=== PATIENT | female | born 1985 | race Caucasian/White ===

== ENCOUNTER 2017-04-17 20:54 | Emergency (ER) | payer MEDICARE ==
[~2017-04-17] VITALS: Ht 162.6 cm; Wt 68.0 kg
[~2017-04-17 20:54] MED LIST: CALC-308 PO; CARV25TA PO; CLON0.2T PO; HYDR-757 PO; LISI-552 PO; MUPI15CR11 TP; ONDA4TAB8 PO
[2017-04-17] MEDS ORDERED: SEVE800T7 (21:14)
[2017-04-17] MEDS ORDERED: DILT180C48 (21:14)
[2017-04-17] MEDS ORDERED: OMEP20CA12 (21:14)
[2017-04-17] MEDS ORDERED: HYDR-3924 (21:14)
[2017-04-17] MEDS ORDERED: OXYC-471 (21:14)
[2017-04-17] MEDS ORDERED: CLON1TAB3 (21:14)
[2017-04-17] MEDS ORDERED: CETI10TA17 (21:14)
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
--- NOTE | 2017-04-17 22:06 | Diagnostic Imaging Report ---
EXAM: THORACIC SPINE, 2 VIEWS ONLY INDICATION: Back pain. COMPARISON: Lumbar spine radiographs 11/17/2015. FINDINGS: Marked anterior wedging of the T10 vertebral body. This was not well characterized on the prior lumbar spine radiographs. Vertebral body heights are otherwise preserved. There are hvkr-uz-onkjrrnv diffuse degenerative endplate changes. No other findings suspicious for acute fracture. Atherosclerotic calcifications are greater than expected for age. Surgical clips in the thoracic inlet and base of the neck. Cardiomegaly. IMPRESSION: Marked anterior wedging of the T10 vertebral body. This is age-indeterminate and was not well characterized on the prior lumbar spine radiographs. If there is suspicion of an acute or subacute fracture, recommend further evaluation with MRI. Dictated by: Dictated on workstation # [id number]
--- NOTE | 2017-04-17 22:09 | Diagnostic Imaging Report ---
EXAM: LUMBAR SPINE - 2-3 VIEWS INDICATION: Back pain. COMPARISON: Lumbar spine radiographs 11/17/2015. FINDINGS: Marked anterior wedging of the T10 vertebral body is age-indeterminate. This was not well characterized on the prior lumbar spine radiographs. Vertebral body heights are otherwise preserved. Normal alignment. No acute fractures. Atherosclerotic calcifications are greater than expected for age. IMPRESSION: Age-indeterminate anterior wedging of the T10 vertebral body. This may have been present on the prior lumbar spine radiographs was not well characterized. If there is a concern for subacute or acute fracture, recommend MRI. Dictated by: Dictated on workstation # [id number]
[2017-04-17] MEDS ORDERED: TIZA2CAP PO (22:28)
[2017-04-17] MEDS ORDERED: KETOROLAC 60 MG/2 ML VIAL IM STA (22:30)
[2017-04-17 22:58] VITALS: BP 119/81
== END 2017-04-17 22:56 | disposition home or self-care (01) ==
LOC: EDUNIT# 20:54 → ER 20:57
DX: M54.9 Dorsalgia, unspecified (principal); I12.0 Hypertensive chronic kidney disease with stage 5 chronic kidney disease or end stage renal disease; N18.6 End stage renal disease; Z99.2 Dependence on renal dialysis; Z87.81 Personal history of (healed) traumatic fracture; Z90.89 Acquired absence of other organs; X50.0XXA Overexertion from strenuous movement or load, initial encounter
CPT/HCPCS: 72070; 72100; 99284

== ENCOUNTER 2017-06-22 14:41 | Emergency (ER) | payer MEDICARE ==
[~2017-06-22] VITALS: Ht 162.6 cm; Wt 68.0 kg
[~2017-06-22 14:41] MED LIST changes: +CETI10TA17; +CLON1TAB3; +DILT180C48; +HYDR-3924; +OMEP20CA12; +OXYC-471; +SEVE800T7; +TIZA2CAP PO
--- NOTE | 2017-06-22 15:46 | ED Fall/Injury ---
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 SHE IS C/O TAILBONE PAIN UP TO MID BACK PAIN. Source: patient History of Present Illness Date Seen by Provider: Jun 22, 2017 Time Seen by Provider: 14:55 Initial Comments PT ARRIVES VIA POV--AMBULATES INTO ER ON HER OWN WITHOUT ANY DIFFICULTY WHATSOEVER C/O "EXTREME TAILBONE PAIN TO MY HIPS AND UP TO THE MIDDLE OF MY BACK" PT STATES SHE SLIPPED ON THE ICE AND LANDED ON HER BUTTOCKS ONTO [address] DRIVEWAY LAST WEEK--06/12/17 PT STATES "PAIN IS SO SEVERE AND IT'S DRIVING ME NUTS AND I CAN'T SLEEP AND I'M USING MY WALKER TO GET ANYWHERE" PT STATES SHE IS ONLY ABLE TO SLEEP IN CHAIR AT DIALYSIS NO NEW PARESTHESIAS OR MOTOR DEFICITS--HAS PERIPHERAL NEUROPATHY PT DENIES ANY CHANGES IN BOWEL OR BLADDER FUNCTION. 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 ALSO HAS PARATHYROID DISEASE PCP: NONE--"JUST MOVED HERE 1 MONTH AGO FROM [place]" STATES SHE IS "BOUNCING BACK BETWEEN STAYING WITH A FRIEND HERE IN [place] AND SISTER IN [place]" GOES TO DIALYSIS IN [place] Allergies and Home Medications Allergies Coded Allergies: Penicillins (Verified Allergy, Unknown, 11/17/15) iron (Verified Allergy, Unknown, 11/17/15) Home Medications Calcium Carbonate 500 Mg Tab.chew, Unknown Dose PO, (Reported) Carvedilol 25 Mg Tablet, 25 MG PO BID, (Reported) Cetirizine HCl 10 Mg Tablet, (Reported) Clonazepam 1 Mg Tablet, (Reported) Diltiazem HCl 180 Mg Cap.er.deg, (Reported) Hydralazine HCl 50 Mg Tablet, (Reported) Lisinopril 20 Mg Tablet, 20 MG PO DAILY, (Reported) Methylprednisolone 4 Mg Tab.ds.pk, 4 MG PO UD, #1 Prescribed by: COREY SINGH on 06/22/17 1644 Omeprazole 20 Mg Capsule., (Reported) Oxycodone HCl/Acetaminophen 1 Each Tablet, (Reported) Sevelamer Carbonate 800 Mg Tablet, (Reported) Tizanidine HCl 2 Mg Capsule, 2 MG PO Q8H PRN for SPASMS, #15 Ref 0 Prescribed by: RALPH LONG on 04/17/178 Tizanidine HCl 4 Mg Tablet, 4 MG PO TID, #14 Prescribed by: COREY SINGH on 06/22/17 1644 Constitutional: no symptoms reported Respiratory: no symptoms reported Cardiovascular: no symptoms reported Gastrointestinal: no symptoms reported Genitourinary: see HPI : No (LMP 6 MONTHS AGO--PT STATES SHE DOES NOT HAVE PERIODS DUE TO ANEMIA--ONLY GETS A PERIOD WHEN SHE HAS A BLOOD TRANSFUSION. LAST TRANSFUSION 1 MONTH AGO BUT NO PERIOD. STATES NO INTERCOURSE >1 YEAR AGO ) Musculoskeletal: see HPI, back pain Skin: no symptoms reported Psychiatric/Neurological: See HPI, Pre-Existing Deficit Past Yseowzq-Subpdx-Jbeqlc Hx Patient Social History Alcohol Use: Denies Use Recreational Drug Use: No Smoking Status: Current Everyday Smoker (1 PPD) Type Used: Cigarettes 2nd Hand Smoke Exposure: Yes Recent Foreign Travel: No Contact w/Someone Who Travel: No Recent Infectious Disease Expo: No Recent Hopitalizations: No Immunizations Up To Date Tetanus Booster (TDap): Unknown PED Vaccines UTD: Yes Seasonal Allergies Seasonal Allergies: No Surgeries History of Surgeries: Yes (LEFT ARM DIALYSIS FISTULA; LEFT PATELLA TENDON REPAIR; RIGHT QUADRICEPS TENDON REPAIR; RIGHT RENAL BIOPSY) Surgeries: Dialysis, Orthopedic, Parathyroidectomy Respiratory History of Respiratory Disorde: No Cardiovascular History of Cardiac Disorders: Yes Cardiac Disorders: Hypertension Neurological History of Neurological Disord: Yes Neurological Disorders: Neuropathy Reproductive System Female Reproductive Disorders: Menstrual Problems Genitourinary History of Genitourinary Disor: Yes (ESRD-FELT TO BE FROM STREP GLOMERULONEPHRITIS AT AGE 15, RENAL FAILURE DX AGE 19, ON DIALYSIS SINCE AGE 23) Genitourinary Disorders: Renal Failure, Dialysis Gastrointestinal History of Gastrointestinal Di: Yes Gastrointestinal Disorders: Gastroesophageal Reflux Musculoskeletal History of Musculoskeletal Dis: Yes (T11 COMPRESSION FRACTURE; CHRONIC GENERALIZED PAIN) Musculoskeletal Disorders: Osteoporosis, Chronic Back Pain, Fractures Endocrine History of Endocrine Disorders: Yes Endocrine Disorders: Parathyroid Disease HEENT History of HEENT Disorders: No Cancer History of Cancer: No Psychosocial History of Psychiatric Problem: No Integumentary History of Skin or Integumenta: No Blood Transfusions History of Blood Disorders: Yes (ANEMIA) Hx of Blood Transfusion YES-MULTIPLE Adverse Reaction to a Blood Tr: No Physical Exam Vital Signs Vital Sign - Last 12Hours 06/22/17 14:56 Temp 98.2 Pulse 86 Resp 18 B/P (MAP) 124/84 (97) Pulse Ox 96 O2 Delivery Room Air Capillary Refill : Less Than 3 Seconds General Appearance: WD/WN, no apparent distress, other (PT AMBULATES INTO ER WITHOUT ANY DIFFICULTY, WITHOUT A WALKER OR ANY ASSISTANCE. PT SITTING - STYLE ON ER CART, TEXTING ON PHONE. DOES NOT APPEAR TO BE IN ANY DISCOMFORT. PT WALKS UPRIGHT AND MOVES WITHOUT ANY DIFFICULTY. ) HEENT: PERRL/EOMI Neck: normal inspection Cardiovascular: regular rate, rhythm, no murmur Respiratory: normal breath sounds, no respiratory distress, no accessory muscle use Gastrointestinal: normal bowel sounds, non tender, soft Back: other (MILD TENDERNESS FROM MID THORACIC AREA TO LUMBAR AREA. TENDERNESS OVER L>R SI JOINT AREAS. DTR'S INTACT BILATERALLY. ) Extremities: normal range of motion, non-tender, normal inspection, no pedal edema, no calf tenderness, normal capillary refill Neurologic/Psychiatric: site administrator II-XII nml as tested, no motor/sensory deficits ( GROSSLY INTACT. HISTORY OF PERIPHERAL NEUROPATHY IN FEET. ), alert, normal mood/ affect, oriented x 3 Skin: warm/dry, other (SALLOW/PALE; NO EXTERNAL EVIDENCE OF TRAUMA TO BACK ) Josefa Coma Score Best Eye Response: (4) Open Spontaneously Best Verbal Response: (5) Oriented Best Motor Response: (6) Obeys Commands Josefa Total: 15 Progress/Results/Core Measures Results/Orders My Orders Orders - COREY SINGH DO Ct Thoracic/Lumbar Spine Wo (06/22/17 15:09) Ct Pelvis Wo (06/22/17 15:10) Vital Signs/I&O Vital Sign - Last 12Hours 06/22/17 14:56 Temp 98.2 Pulse 86 Resp 18 B/P (MAP) 124/84 (97) Pulse Ox 96 O2 Delivery Room Air Blood Pressure Mean: 97 Progress Note : Progress Note UNEVENTFUL ER STAY Diagnostic Imaging Comments CT THORACIC AND LUMBAR SPINE--CHRONIC COMPRESSION T11 VERTEBRA, AND CHRONIC DEGENERATIVE, SCLEROTIC, OSTEOPOROTIC CHANGES . NO ACUTE PROCESS. ALL UNCHANGED FROM PRIOR CT ON 04/17/17--PER RADIOLOGIST REPORT @ 1632 Reviewed: Reviewed by Me Departure Impression Impression: Primary Impression: Low back strain Disposition: 01 HOME, SELF-CARE Condition: Stable Departure-Patient Inst. Referrals: NO,LOCAL PHYSICIAN (PCP/Family) Primary Care Physician Patient Instructions: MANAGING YOUR CHRONIC PAIN, Low Back Pain (DC), Lumbar Muscle Strain (DC) Add. Discharge Instructions: CONTINUE YOUR REGULAR MEDICATIONS PRESCRIBED FOLLOW UP WITH LOCAL DR OF CHOICE NEXT WEEK FOR FURTHER CARE All discharge instructions reviewed with patient and/or family. Voiced understanding. Scripts Tizanidine HCl (Zanaflex) 4 Mg Tablet 4 MG PO TID, #14 TAB Prov: COREY SINGH DO 06/22/17 Methylprednisolone (Medrol) 4 Mg Tab.ds.pk 4 MG PO UD, #1 PKG Prov: COREY SINGH DO 06/22/17 COREY SINGH DO Jun 22, 2017 15:46
--- NOTE | 2017-06-22 15:58 | Diagnostic Imaging Report ---
INDICATION: Fall with back and tailbone pain. Axial imaging through the thoracic and lumbar spine was performed without contrast. Sagittal and coronal reformations were also performed. Comparison is made with radiographs of the thoracic and lumbar spine performed on 04/17/2017. FINDINGS: Marked anterior compression deformity involving approximately T11 vertebral body is similar to the plain films from March 2017. No significant retropulsion is identified. Remaining thoracic and lumbar vertebrae demonstrate normal stature. There is diffuse osteosclerosis of the visualized thoracic and lumbar spine and ribs. There do appear to be small bilateral pleural effusions present. Soft tissue windows demonstrate bilateral renal atrophy. There are vascular calcifications present. The heart appears to be enlarged. IMPRESSION: Diffuse osteosclerosis, perhaps on the basis of renal osteodystrophy. There is a compression fracture deformity of T11 vertebral body, similar to the plain films from 04/17/2017. No new fracture is identified. Dictated by: Dictated on workstation # [id number]
--- NOTE | 2017-06-22 16:01 | Diagnostic Imaging Report ---
PROCEDURE: CT pelvis without contrast. TECHNIQUE: Multiple contiguous axial images were obtained through the pelvis without the use of intravenous contrast. Sagittal and coronal reformations were performed. INDICATION: Fall, bilateral pain in the iliac crest region. COMPARISON: None. FINDINGS: The bone is heterogeneously dense throughout the pelvis, with prominent trabeculations in the proximal femurs. The imaged portions of the lower lumbar spine demonstrate dense bone along the endplates. A Schmorl's node is seen at the superior endplate of the L4 vertebral body. No acute fracture is seen. Alignment appears normal. The femoral heads are well seated in the acetabula bilaterally. The bilateral sacroiliac joints and pubic symphysis are patent. There is transitional anatomy at the lumbosacral junction, with partial sacralization of the L5 vertebral body on the left. No free fluid is seen in the pelvis. No fluid collections or masses are identified. IMPRESSION: 1. No acute fracture or dislocation is seen in the pelvis. 2. Heterogeneously dense bone throughout the pelvis with endplate sclerosis partially seen in the lower lumbar spine suggestive of hyperparathyroidism or osteopetrosis. 3. Transitional anatomy at the lumbosacral junction with hemisacralization of L5. This can be a source of chronic pain in some individuals. Dictated by: Dictated on workstation # [id number]
[2017-06-22] MEDS ORDERED: TIZA4TAB11 PO (16:44)
[2017-06-22] MEDS ORDERED: METH4TAB PO (16:44)
[2017-06-22 17:03] VITALS: BP 124/84
== END 2017-06-22 17:03 | disposition home or self-care (01) ==
LOC: EDUNIT# 14:41 → ER 14:43
DX: S39.012A Strain of muscle, fascia and tendon of lower back, initial encounter (principal); M81.0 Age-related osteoporosis without current pathological fracture; K21.9 Gastro-esophageal reflux disease without esophagitis; G62.9 Polyneuropathy, unspecified; I10 Essential (primary) hypertension; F17.210 Nicotine dependence, cigarettes, uncomplicated; Z87.81 Personal history of (healed) traumatic fracture; Z99.2 Dependence on renal dialysis; Z90.89 Acquired absence of other organs; W00.0XXA Fall on same level due to ice and snow, initial encounter
CPT/HCPCS: 72128; 72131; 72192; 99281

== ENCOUNTER 2017-07-22 18:52 | Emergency (ER) | payer MEDICARE ==
[~2017-07-22] VITALS: Ht 162.6 cm; Wt 68.0 kg
[~2017-07-22 18:52] MED LIST changes: +METH4TAB PO; +TIZA4TAB11 PO
[2017-07-22] MEDS ORDERED: LIDOCAINE 2% VISCOUS 15 ML UDC PO ONE (20:15)
--- NOTE | 2017-07-22 20:22 | ED EENT ---
History of Present Illness General Chief Complaint: Dental Problems/Pain Stated Complaint: TOOTH BROKE/DENTAL PAIN History of Present Illness Date Seen by Provider: Jul 22, 2017 Time Seen by Provider: 20:17 Initial Comments Patient presents to the ER with complaints of left upper dental pain. Patient reports that 2 days ago she was eating and bit down on something hard and it broke off a piece of her tooth. Patient reports not having a dentist but is trying to get into somewhere that takes Medicaid. Patient is from [facility] and states that she is planning on getting into [facility] [place]. Timing/Duration: abrupt Severity: mild Location: mouth, dental Prearrival Treatment: over the counter meds Modifying Factors: Improves With Other (topical benzocaine) Associated Symptoms: denies symptoms Allergies and Home Medications Allergies Coded Allergies: Penicillins (Verified Allergy, Unknown, 11/17/15) iron (Verified Allergy, Unknown, 11/17/15) Home Medications Calcium Carbonate 500 Mg Tab.chew, Unknown Dose PO, (Reported) Carvedilol 25 Mg Tablet, 25 MG PO BID, (Reported) Cephalexin 500 Mg Capsule, 500 MG PO TID for 7 Days, #14 Prescribed by: KIM CRUZ on 07/22/172032 Cetirizine HCl 10 Mg Tablet, (Reported) Clonazepam 1 Mg Tablet, (Reported) Clonidine HCl 0.2 Mg Tablet, 0.2 MG PO BID PRN for BLOOD PRESSURE, (Reported) Diltiazem HCl 180 Mg Cap.er.deg, (Reported) Hydralazine HCl 50 Mg Tablet, (Reported) Hydrocodone/Acetaminophen 1 Each Tablet, 1 EACH PO Q6H, #10 Only fill prescription if antibiotic is also filled. Prescribed by: KIM CRUZ on 07/22/172032 Lisinopril 20 Mg Tablet, 20 MG PO DAILY, (Reported) Omeprazole 20 Mg Capsule., (Reported) Sevelamer Carbonate 800 Mg Tablet, (Reported) Review of Systems Constitutional: no symptoms reported, see HPI Eyes: No Symptoms Reported, See HPI Ears: No Symptoms Reported, See HPI Nose: no symptoms reported, see HPI Mouth: see HPI, other (broken tooth) Throat: no symptoms reported, see HPI Respiratory: no symptoms reported, see HPI Cardiovascular: no symptoms reported, see HPI Gastrointestinal: other (reports that she has end-stage renal failure and goes to dialysis.) : No Musculoskeletal: no symptoms reported, see HPI Skin: no symptoms reported Neurological: No Symptoms Reported, See HPI Hematologic/Lymphatic: No Symptoms Reported, See HPI Immunological/Allergic: no symptoms reported, see HPI Past Ydnrexf-Xbcxso-Sivrhr Hx Patient Social History Type Used: Cigarettes 2nd Hand Smoke Exposure: Yes Recent Foreign Travel: No Contact w/Someone Who Travel: No Recent Hopitalizations: No Immunizations Up To Date Tetanus Booster (TDap): Unknown PED Vaccines UTD: Yes Seasonal Allergies Seasonal Allergies: No Surgeries History of Surgeries: Yes Surgeries: Dialysis, Orthopedic, Parathyroidectomy Respiratory History of Respiratory Disorde: No Cardiovascular History of Cardiac Disorders: Yes Cardiac Disorders: Hypertension Neurological History of Neurological Disord: Yes Neurological Disorders: Neuropathy Reproductive System Female Reproductive Disorders: Menstrual Problems Genitourinary History of Genitourinary Disor: Yes Genitourinary Disorders: Renal Failure, Dialysis Gastrointestinal History of Gastrointestinal Di: Yes Gastrointestinal Disorders: Gastroesophageal Reflux Musculoskeletal History of Musculoskeletal Dis: Yes (T11 COMPRESSION FRACTURE; CHRONIC GENERALIZED PAIN) Musculoskeletal Disorders: Osteoporosis, Chronic Back Pain, Fractures Endocrine History of Endocrine Disorders: Yes Endocrine Disorders: Parathyroid Disease HEENT History of HEENT Disorders: No Cancer History of Cancer: No Psychosocial History of Psychiatric Problem: No Integumentary History of Skin or Integumenta: No Blood Transfusions History of Blood Disorders: Yes (ANEMIA) Adverse Reaction to a Blood Tr: No Physical Exam Vital Signs Vital Signs - First Documented 07/22/17 20:08 Temp 98.3 Pulse 77 Resp 18 B/P (MAP) 156/101 (119) O2 Delivery Room Air General Appearance: WD/WN, no apparent distress Eyes: bilateral eye normal inspection, bilateral eye PERRL, bilateral eye EOMI Mouth/Throat: dental tenderness, other (fractured tooth. No surrounding tenderness or inflammation that indicates a drainable abscess.) Neck: non-tender, full range of motion Cardiovascular: normal peripheral pulses, regular rate, rhythm Respiratory: chest non-tender, lungs clear, normal breath sounds Gastrointestinal: normal bowel sounds, non tender Neurologic/Psychiatric: alert, normal mood/affect, oriented x 3 Skin: normal color, warm/dry Progress/Results/Core Measures Results/Orders My Orders Orders - KIM CRUZ APRN Lidocaine 2% Viscous 15 Ml (Xylocaine Vi (07/22/17 20:15) Medications Given in ED Current Medications Medications Dose Ordered Sig/Sujey Route Start Time Stop Time Status Last Admin Dose Admin Lidocaine HCl 5 ml ONCE ONCE PO 07/22/17 20:15 07/22/17 20:16 DC 07/22/17 20:34 5 ML Vital Signs/I&O Vital Sign - Last 12Hours 07/22/17 20:08 Temp 98.3 Pulse 77 Resp 18 B/P (MAP) 156/101 (119) O2 Delivery Room Air Departure Communication (Admissions) Progress Notes [facility] pharmacy in [place] called me at this time to report that patient has had opiates filled at 4 different pharmacies written by 7 different prescribers over the past 6 months. With this information I decided to cancel the hydrocodone prescription due to concerns of inappropriate use of opiates. Impression Impression: Primary Impression: Fractured tooth Disposition: HOME, SELF-CARE Condition: Improved Departure-Patient Inst. Decision time for Depature: 20:23 Referrals: NO,LOCAL PHYSICIAN (PCP/Family) Primary Care Physician Patient Instructions: Fractured Tooth (DC), Dental Pain (DC) Add. Discharge Instructions: Make an appointment to follow-up with dentist within the week. If you do not have a dentist were insurance to me call the [facility] dental office for appointment. They're location that [address] [place] [address]. Take medications as directed. All discharge instructions reviewed with patient and/or family. Voiced understanding. Scripts Cephalexin (Keflex) 500 Mg Capsule 500 MG PO TID for 7 Days, #14 CAP Prov: KIM CRUZ INFORMATICS PHYSICIAN 07/22/17 Hydrocodone/Acetaminophen (Mora 5-325 Tablet) 1 Each Tablet 1 EACH PO Q6H for Pain, #10 TAB Only fill prescription if antibiotic is also filled. Prov: KIM CRUZ APRN 07/22/17 Images Mouth/Nose 1 - Fracture Tooth KIM CRUZ APRN Jul 22, 2017 20:22
[2017-07-22] MEDS ORDERED: CLON0.2T PO (20:26)
[2017-07-22] MEDS ORDERED: HYDR-757 PO (20:33)
[2017-07-22] MEDS ORDERED: CEPH-507 PO (20:33)
[2017-07-22 20:40] VITALS: BP 156/101
== END 2017-07-22 20:43 | disposition home or self-care (01) ==
LOC: EDUNIT# 18:52 → ER 18:53
DX: S02.5XXA Fracture of tooth (traumatic), initial encounter for closed fracture (principal); I12.0 Hypertensive chronic kidney disease with stage 5 chronic kidney disease or end stage renal disease; N18.6 End stage renal disease; K21.9 Gastro-esophageal reflux disease without esophagitis; M81.0 Age-related osteoporosis without current pathological fracture; Z99.2 Dependence on renal dialysis; Z88.0 Allergy status to penicillin; Z88.8 Allergy status to other drugs, medicaments and biological substances; Z77.22 Contact with and (suspected) exposure to environmental tobacco smoke (acute) (chronic); Z90.89 Acquired absence of other organs; X58.XXXA Exposure to other specified factors, initial encounter
CPT/HCPCS: 99283

== ENCOUNTER 2017-08-20 16:37 | Emergency (ER) | payer MEDICARE ==
[~2017-08-20] VITALS: Ht 162.6 cm; Wt 69.9 kg
[~2017-08-20 16:37] MED LIST changes: +CEPH-507 PO
[2017-08-20] MEDS ORDERED: LIDOCAINE 2% VISCOUS 15 ML UDC PO ONE (18:30)
[2017-08-20] MEDS ORDERED: CLIN300C11 PO (18:40)
[2017-08-20] MEDS ORDERED: HYDR-3812 PO (18:40)
--- NOTE | 2017-08-20 18:42 | ED EENT ---
History of Present Illness General Chief Complaint: Dental Problems/Pain Stated Complaint: DENTAL PAIN Nursing Triage Note: PATIENT STATES THAT SHE STARTED HAVING PAIN FROM A BROKEN TOOTH 4-5 WEEKS AGO. TODAY IT HAS WORSENED TO THE POINT THAT SHE CANT EAT AND IT IS GIVING HER HEADACHES. Source: patient Exam Limitations: no limitations History of Present Illness Date Seen by Provider: Aug 20, 2017 Time Seen by Provider: 18:13 Initial Comments This 32-year-old woman presents to the emergency room with complaints of dental pain that started 4-5 weeks ago. She has a fractured left upper molar. She had originally scheduled to see her dentist, Dr. Gonzalez, but he was out on paternity leave. The pain is intense throbbing especially when exposed to varying temperatures or with drinking. She had a questionable fever a few days ago. She has used topical anesthetic as previously prescribed and states this gave some relief. She is limited on her treatment options due to end-stage renal failure on dialysis. Allergies and Home Medications Allergies Coded Allergies: Penicillins (Verified Allergy, Unknown, 11/17/15) iron (Verified Allergy, Unknown, 11/17/15) Home Medications Carvedilol 25 Mg Tablet, 25 MG PO BID, (Reported) Cephalexin 500 Mg Capsule, 500 MG PO TID Prescribed by: KIM CRUZ on 07/22/172032 Clindamycin HCl 300 Mg Capsule, 300 MG PO QID Prescribed by: LATOSHA DOYLE on 08/20/171839 Clonidine HCl 0.2 Mg Tablet, 0.2 MG PO BID PRN for BLOOD PRESSURE, (Reported) Hydrocodone/Acetaminophen 1 Each Tablet, 1 EACH PO Q6H Only fill prescription if antibiotic is also filled. Prescribed by: KIM CRUZ on 07/22/172032 Hydrocodone/Acetaminophen 1 Each Tablet, 1 EACH PO Q6H PRN for PAIN-MODERATE TO SEVERE Prescribed by: LATOSHA DOYLE on 08/20/171839 Lisinopril 20 Mg Tablet, 20 MG PO DAILY, (Reported) Patient Home Medication List Home Medication List Reviewed: Yes Review of Systems Constitutional: no symptoms reported Eyes: No Symptoms Reported Ears: No Symptoms Reported Nose: no symptoms reported Mouth: see HPI Throat: no symptoms reported Respiratory: no symptoms reported Cardiovascular: no symptoms reported Gastrointestinal: no symptoms reported : No Musculoskeletal: no symptoms reported Skin: no symptoms reported Neurological: No Symptoms Reported Past Wqdhrwe-Azvktf-Pqhwib Hx Patient Social History Alcohol Use: Denies Use Recreational Drug Use: No Smoking Status: Current Everyday Smoker Type Used: Cigarettes 2nd Hand Smoke Exposure: Yes Recent Foreign Travel: No Contact w/Someone Who Travel: No Recent Infectious Disease Expo: No Recent Hopitalizations: No Physical Abuse: No Sexual Abuse: No Immunizations Up To Date Tetanus Booster (TDap): More than 5yrs PED Vaccines UTD: Yes Date of Pneumonia Vaccine: Apr 30, 2017 Date of Influenza Vaccine: Apr 30, 2017 Seasonal Allergies Seasonal Allergies: No Surgeries History of Surgeries: Yes Surgeries: Abdominal (endoscopy with esophageal dilatation), Dialysis (fistula in the left arm), Orthopedic (patellar tendon surgery), Parathyroidectomy Respiratory History of Respiratory Disorde: No Cardiovascular History of Cardiac Disorders: Yes Cardiac Disorders: Hypertension Neurological History of Neurological Disord: Yes Neurological Disorders: Neuropathy Reproductive System Female Reproductive Disorders: Menstrual Problems Genitourinary History of Genitourinary Disor: Yes 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), Dialysis Gastrointestinal History of Gastrointestinal Di: Yes Gastrointestinal Disorders: Gastroesophageal Reflux Musculoskeletal History of Musculoskeletal Dis: Yes (T11 COMPRESSION FRACTURE; CHRONIC GENERALIZED PAIN) Musculoskeletal Disorders: Osteoporosis, Chronic Back Pain, Fractures Endocrine History of Endocrine Disorders: Yes Endocrine Disorders: Parathyroid Disease HEENT History of HEENT Disorders: No Cancer History of Cancer: No Psychosocial History of Psychiatric Problem: No Suicide Risk Score: 0 Integumentary History of Skin or Integumenta: No Blood Transfusions History of Blood Disorders: Yes (ANEMIA) Adverse Reaction to a Blood Tr: No Physical Exam Vital Signs Vital Signs - First Documented 08/20/17 17:20 Temp 97.6 Pulse 81 Resp 20 B/P (MAP) 142/99 (113) Pulse Ox 100 O2 Delivery Room Air General Appearance: WD/WN, no apparent distress Nose: normal inspection Mouth/Throat: pharynx normal, dental tenderness, other (fractured left upper molar. No overt abscess formation or gingivitis.) Neck: normal inspection Cardiovascular: regular rate, rhythm, no edema, no murmur Respiratory: lungs clear, normal breath sounds, no respiratory distress, no accessory muscle use Neurologic/Psychiatric: superintendent pier II-XII nml as tested, no motor/sensory deficits, alert, normal mood/affect, oriented x 3 Skin: normal color, warm/dry Progress/Results/Core Measures Results/Orders My Orders Orders - LATOSHA SUTTON MD Lidocaine 2% Viscous 15 Ml (Xylocaine Vi (08/20/17 18:30) Vital Signs/I&O Vital Sign - Last 12Hours 08/20/17 08/20/17 17:20 18:57 Temp 97.6 97.6 Pulse 81 81 Resp 20 20 B/P (MAP) 142/99 (113) 142/99 (113) Pulse Ox 100 100 O2 Delivery Room Air Room Air Blood Pressure Mean: 113 Progress Note : Progress Note Patient was supplied with a prescription for clindamycin and a small quantity of hydrocodone. Anesthetic gauze pads were prepared. Strict precautions regarding use of gauze pads were discussed. Departure Impression Impression: Primary Impression: Fractured tooth Qualified Codes: S02.5XXA - Fracture of tooth (traumatic), initial encounter for closed fracture Additional Impression: Pain, dental Disposition: HOME, SELF-CARE Condition: Improved Departure-Patient Inst. Decision time for Depature: 18:30 Referrals: NO,LOCAL PHYSICIAN (PCP/Family) Primary Care Physician Patient Instructions: Dental Pain (DC) Add. Discharge Instructions: Take your medications as prescribed. Use the gauze pads as needed for topical anesthetic. Place them over the tooth and surrounding gums. Eat, drink and chew very carefully after using gauze pads as they may numb your mouth, tongue, and throat. Do not fall sleep with gauze pads in your mouth. Seek treatment from a dentist as soon as possible. All discharge instructions reviewed with patient and/or family. Voiced understanding. Scripts Hydrocodone/Acetaminophen (Hydrocodone-Acetamin 5-325 mg) 1 Each Tablet 1 EACH PO Q6H Y for PAIN-MODERATE TO SEVERE, #10 TAB Prov: LATOSHA SUTTON MD 08/20/17 Clindamycin HCl (Clindamycin HCl) 300 Mg Capsule 300 MG PO QID, #40 CAP Prov: LATOSHA SUTTON MD 08/20/17 LATOSHA SUTTON MD Aug 20, 2017 18:42
[2017-08-20 18:57] VITALS: BP 142/99
== END 2017-08-20 18:57 | disposition home or self-care (01) ==
LOC: EDUNIT# 16:37 → ER 16:38
DX: S02.5XXA Fracture of tooth (traumatic), initial encounter for closed fracture (principal); I12.0 Hypertensive chronic kidney disease with stage 5 chronic kidney disease or end stage renal disease; N18.6 End stage renal disease; K21.9 Gastro-esophageal reflux disease without esophagitis; M81.0 Age-related osteoporosis without current pathological fracture; F17.210 Nicotine dependence, cigarettes, uncomplicated; Z99.2 Dependence on renal dialysis; Z88.0 Allergy status to penicillin; Z88.8 Allergy status to other drugs, medicaments and biological substances; X58.XXXA Exposure to other specified factors, initial encounter
CPT/HCPCS: 99283